=== PATIENT | female | born 1975 | race Caucasian/White ===

== ENCOUNTER 2017-06-02 20:46 | Emergency (ER) | payer OTHER ==
[~2017-06-02] VITALS: Ht 167.6 cm; Wt 131.8 kg
[2017-06-02] MEDS ORDERED: HYDR-4065 PO (20:51)
[2017-06-02] MEDS ORDERED: FAMOTIDINE 10 MG/ML 2 ML VIAL IVP ONE (21:30)
[2017-06-02] MEDS ORDERED: DiphenhydrAMINE HCL 50 MG/ML VIAL IVP ONE (21:30)
[2017-06-02] MEDS ORDERED: SODIUM CHLORIDE 0.9% 1,000 ML IV ONE (21:30)
[2017-06-02] MEDS ORDERED: MethylPREDNISolone SOD SUCC 125 MG/2 ML VIAL IVP ONE (21:30)
[2017-06-03] VITALS: BP 116/67
== END 2017-06-03 00:05 | disposition home or self-care (01) ==
LOC: EMS 20:47
DX: J30.81 Allergic rhinitis due to animal (cat) (dog) hair and dander (principal); L29.9 Pruritus, unspecified; Z87.891 Personal history of nicotine dependence; Z88.8 Allergy status to other drugs, medicaments and biological substances
CPT/HCPCS: 36415; 84703; 96361; 96374; 96375; 99285; J1200; J2930; J3490; J7030; 96360; 99284